=== PATIENT | female | born 1970 | race Hispanic/Latino ===

== ENCOUNTER 2019-11-25 16:01 | Emergency (ER) | payer OTHER ==
[2019-11-25] MEDS ORDERED: Famotidine 20 MG TAB ONE (16:39)
[2019-11-25] MEDS ORDERED: predniSONE 20 MG TAB ONE (16:39)
[2019-11-25] MEDS ORDERED: hydrOXYzine 25 MG TAB ONE (16:39)
== END 2019-11-25 16:47 | disposition home or self-care (01) ==
LOC: BURERS 16:01
DX: S60.562A Insect bite (nonvenomous) of left hand, initial encounter (principal); E11.9 Type 2 diabetes mellitus without complications; Z79.84 Long term (current) use of oral hypoglycemic drugs; W57.XXXA Bitten or stung by nonvenomous insect and other nonvenomous arthropods, initial encounter
CPT/HCPCS: 99283; J7512